=== PATIENT | female | born 1965 | race Caucasian/White ===

== ENCOUNTER 2018-02-06 17:32 | Emergency (ER) | payer OTHER ==
[~2018-02-06] VITALS: Ht 165.1 cm; Wt 101.2 kg
[~2018-02-06 17:32] MED LIST: ANTIVERT25 M1 PO; COZAAR25 MG; JANUMET 50-501 UDTAB; KETO10TA2 PO
== END 2018-02-06 21:19 | disposition home or self-care (01) ==
LOC: ER 17:32
DX: G44.209 Tension-type headache, unspecified, not intractable (principal)

== ENCOUNTER 2019-10-19 11:02 | Emergency (ER) | payer OTHER ==
[~2019-10-19] VITALS: Ht 160 cm; Wt 100.2 kg
== END 2019-10-19 14:57 | disposition home or self-care (01) ==
LOC: ER 11:02
DX: B02.21 Postherpetic geniculate ganglionitis (principal)

== ENCOUNTER 2019-10-19 11:33 | Outpatient (CLI) | payer OTHER | END 2019-10-19 11:54 | disposition home or self-care (01) | LOC: LAB 11:33 | DX: E66.01 Morbid (severe) obesity due to excess calories (principal); R10.13 Epigastric pain; R73.09 Other abnormal glucose; E56.8 Deficiency of other vitamins ==

== ENCOUNTER → 2019-11-15 | Outpatient (CLI) | payer OTHER | END | disposition home or self-care (01) | LOC: MAMO-SONO 08:45 → RAD 09:40 → SONOGRAMA 09:40 | DX: R10.31 Right lower quadrant pain (principal); E66.01 Morbid (severe) obesity due to excess calories; R00.0 Tachycardia, unspecified ==

== ENCOUNTER 2019-11-17 10:41 | Outpatient (CLI) | payer OTHER | END 2019-11-17 10:54 | disposition home or self-care (01) | LOC: NUCLEAR 10:41 | DX: R00.2 Palpitations (principal); R00.0 Tachycardia, unspecified; E66.01 Morbid (severe) obesity due to excess calories ==

== ENCOUNTER 2020-05-24 14:46 | Outpatient (CLI) | payer OTHER | END 2020-05-24 14:47 | disposition home or self-care (01) | LOC: MAMO-SONO 14:46 → SONOGRAMA 14:46 → MAMO-SONO 14:47 | PROVIDERS: ATTEND Internal Medicine | DX: Z12.31 Encounter for screening mammogram for malignant neoplasm of breast (principal); I10 Essential (primary) hypertension; M54.5 Low back pain; Z01.810 Encounter for preprocedural cardiovascular examination; G47.33 Obstructive sleep apnea (adult) (pediatric); G47.31 Primary central sleep apnea; Z98.84 Bariatric surgery status; Z68.31 Body mass index [BMI] 31.0-31.9, adult; Z12.11 Encounter for screening for malignant neoplasm of colon; N60.11 Diffuse cystic mastopathy of right breast; N60.12 Diffuse cystic mastopathy of left breast ==

== ENCOUNTER 2023-08-14 11:20 | Outpatient (CLI) | payer OTHER ==
[~2023-08-14 11:20] MED LIST changes: +CLARITIN10 M1 PO; +NORFLEX100MG PO; +TOBRAMYCIN-DEXAM5 ML OP
== END 2023-08-14 14:32 | disposition home or self-care (01) ==
LOC: MAMO-SONO 11:20
PROVIDERS: ATTEND Radiology Diagnostic Radiology
DX: N60.11 Diffuse cystic mastopathy of right breast (principal); N60.12 Diffuse cystic mastopathy of left breast

== ENCOUNTER 2023-09-30 07:43 | Outpatient (CLI) | payer OTHER | END 2023-09-30 08:03 | disposition home or self-care (01) | LOC: SONOGRAMA 07:43 | PROVIDERS: ATTEND General Practice | DX: R10.11 Right upper quadrant pain (principal) ==

== ENCOUNTER 2023-09-30 07:45 | Outpatient (CLI) | payer OTHER ==
[2023-09-30 09:17] LABS: URINE APPEARANCE Cloudy; URINE BILIRRUBIN Negative (NEGATIVE); URINE BLOOD Large; URINE COLOR Yellow; URINE GLUCOSE Negative (NEGATIVE); URINE LEUKOCYTE Moderate; URINE NITRATE Negative; URINE PROTEIN 30 (NEGATIVE); URINE UROBILINOGEN 0.2 E.U./dl
[2023-09-30 09:22] LABS: URINE BACTERIA 425.8 uL (0.0-1933); URINE EPITHELIAL CELLS 22.7 uL (0.0-38.8); URINE RBC 1571.4 uL (0.0-20.8); URINE WBC 833.8 uL (0.0-23.2)
== END 2023-09-30 09:02 | disposition home or self-care (01) ==
LOC: LAB 07:45
PROVIDERS: ATTEND General Practice
DX: N39.0 Urinary tract infection, site not specified (principal)

== ENCOUNTER 2023-10-01 09:33 | Outpatient (CLI) | payer OTHER | END 2023-10-01 11:04 | disposition home or self-care (01) | LOC: TOM 09:33 | PROVIDERS: ATTEND General Practice | DX: R10.33 Periumbilical pain (principal); N20.1 Calculus of ureter; R31.9 Hematuria, unspecified ==

== ENCOUNTER 2024-02-02 10:23 | Outpatient (CLI) | payer OTHER ==
[2024-02-02 11:46] LABS: URINE APPEARANCE Cloudy; URINE BILIRRUBIN Negative (NEGATIVE); URINE BLOOD Small; URINE COLOR Yellow; URINE GLUCOSE Negative (NEGATIVE); URINE LEUKOCYTE Negative; URINE NITRATE Negative; URINE PROTEIN Negative (NEGATIVE); URINE UROBILINOGEN 0.2 E.U./dl
[2024-02-02 11:47] LABS: HEMATOCRIT 37.9 % (36.0-45.00); MEAN CORPUSCULAR HGB CONC 34.1 g/dl (32.0-36.0); PLATELET COUNT 271 K/uL (150-450); RED BLOOD COUNT 4.16 M/uL (4.00-6.00); RED CELL DISTRIBUTION WIDTH 14.1 % (11.5-14.5); URINE BACTERIA 83.1 uL (0.0-1933); URINE EPITHELIAL CELLS 16.3 uL (0.0-38.8); URINE RBC 19.5 uL (0.0-20.8); URINE WBC 3.5 uL (0.0-23.2)
[2024-02-02 11:48] LABS: HEMOGLOBIN 12.9 g/dL (12.0-15.00)
[2024-02-02 12:43] LABS: ALBUMIN 3.8 gm/dL (3.4-5.0); BILIRUBIN TOTAL 0.89 mg/dL (0.3-1.2); CALCIUM 9.2 mg/dL (8.5-10.1); CHOL HDL RATIO 2.2 (0-5.0); CREATININE SERUM 0.52 mg/dL (0.55-1.02); GFR 121.98; GLOBULINA 3.4 G/DL (2.4-3.5); POTASSIUM 4.47 mEq/L (3.5-5.1); T4 TOTAL 7.38 UG/DL (4.8-13.9); TOTAL PROTEIN 7.2 gm/dL (6.4-8.2); TSH 0.552 uIU/mL (0.358-3.74)
[2024-02-02 13:23] LABS: T3 TOTAL 0.905 ng/ml (0.846-2.02); VITAMIN D3 25 HYDROXY 31.97 ng/ml (30-120)
== END 2024-02-02 10:28 | disposition home or self-care (01) ==
LOC: LAB 10:23
PROVIDERS: ATTEND Internal Medicine
DX: I10 Essential (primary) hypertension (principal); G47.33 Obstructive sleep apnea (adult) (pediatric); E03.9 Hypothyroidism, unspecified; E11.51 Type 2 diabetes mellitus with diabetic peripheral angiopathy without gangrene; Z12.11 Encounter for screening for malignant neoplasm of colon; G47.31 Primary central sleep apnea; Z98.84 Bariatric surgery status

== ENCOUNTER → 2024-07-31 10:22 | Outpatient (CLI) | payer OTHER ==
[2024-07-31 11:35] LABS: URINE APPEARANCE Clear; URINE BILIRRUBIN Negative (NEGATIVE); URINE BLOOD Negative; URINE COLOR Yellow; URINE GLUCOSE Negative (NEGATIVE); URINE KETONE Negative (NEGATIVE); URINE LEUKOCYTE Negative; URINE NITRATE Negative; URINE PROTEIN Trace (NEGATIVE)
[2024-07-31 11:36] LABS: HEMATOCRIT 38.3 % (36.0-45.00); MEAN CELL VOLUME 92.4 fL (80.00-100.00); MEAN CORPUSCULAR HEMOGLOBIN 31.4 pg (27.00-32.0); PLATELET COUNT 332 K/uL (150-450); RED BLOOD COUNT 4.14 M/uL (4.00-6.00); RED CELL DISTRIBUTION WIDTH 13.5 % (11.5-14.5)
[2024-07-31 11:43] LABS: URINE BACTERIA 612.2 uL (0.0-1933); URINE EPITHELIAL CELLS 21.9 uL (0.0-38.8); URINE RBC 11.1 uL (0.0-20.8); URINE WBC 13.9 uL (0.0-23.2)
[2024-07-31 12:07] LABS: BILIRUBIN TOTAL 0.77 mg/dL (0.3-1.2); CALCIUM 9.5 mg/dL (8.5-10.1); CREATININE SERUM 0.68 mg/dL (0.55-1.02); GFR 89.5; GLOBULINA 3.7 G/DL (2.4-3.5); POTASSIUM 5.01 mEq/L (3.5-5.1); TOTAL PROTEIN 7.7 gm/dL (6.4-8.2)
== END | disposition home or self-care (01) ==
LOC: LAB 10:22
PROVIDERS: ATTEND Internal Medicine
DX: I10 Essential (primary) hypertension (principal); G47.33 Obstructive sleep apnea (adult) (pediatric); G47.31 Primary central sleep apnea; Z98.84 Bariatric surgery status; E03.9 Hypothyroidism, unspecified; E11.51 Type 2 diabetes mellitus with diabetic peripheral angiopathy without gangrene; Z12.11 Encounter for screening for malignant neoplasm of colon; Z68.31 Body mass index [BMI] 31.0-31.9, adult; Z12.31 Encounter for screening mammogram for malignant neoplasm of breast

== ENCOUNTER 2024-08-18 07:05 | Outpatient (CLI) | payer OTHER | END 2024-08-18 07:16 | disposition home or self-care (01) | LOC: MAMO-SONO 07:05 | PROVIDERS: ATTEND Surgery | DX: N60.11 Diffuse cystic mastopathy of right breast (principal); N60.12 Diffuse cystic mastopathy of left breast ==

== ENCOUNTER 2025-08-25 12:42 | Outpatient (CLI) | payer OTHER | END 2025-08-25 12:45 | disposition home or self-care (01) | LOC: MAMO-SONO 12:42 | PROVIDERS: ATTEND Surgery | DX: N60.11 Diffuse cystic mastopathy of right breast (principal); N60.12 Diffuse cystic mastopathy of left breast ==